=== PATIENT | male | born 2005 | race Hispanic/Latino ===

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

== ENCOUNTER 2024-12-06 18:38 | Emergency (ER) | payer BC ==
[~2024-12-06] VITALS: Ht 175.3 cm; Wt 61.2 kg
[~2024-12-06 18:38] MED LIST: FAMO-136 PO; ONDA-243 PO
--- NOTE | 2024-12-06 19:08 | ERN ---
ED Note History of Present Illness Stated Complaint: TESTICULAR PAIN Chief Complaint: Testicular Injury/Pain Time Seen by MD: 18:42 Time Seen by Midlevel: 18:42 Dictation: 19-year-old male who presents to the ED for evaluation of testicular pain and dy suria he has had for past week. Denies fever, chills, flank pain, urethral discharge. No concern for STD Allergies: Coded Allergies: No Known Drug Allergies (Unverified Allergy, Unknown, 12/05/23) Home Meds Active Scripts Ibuprofen (Ibuprofen) 600 Mg Tablet, 1 TAB PO TID for pain for 10 Days, #30 TAB 0 Refills with food Prov:ALLIE LUO 12/06/24 Famotidine (Pepcid) 20 Mg Tablet, 20 MG PO DAILY, #30 TAB 0 Refills Prov:JOJO STEINBERG NP 12/05/23 Ondansetron (Ondansetron Odt) 4 Mg Tab.rapdis, 4 MG PO Q6HPRN PRN for nausea, #15 TAB 0 Refills Prov:JOJO STEINBERG NP 12/05/23 Past Medical History Past Medical History: No Pertinent History Surgical History: None Social History: Negative, Lives with family RN Note Reviewed/Agreed w/PFSH: Yes Review of System Dictation Constitutional: Negative for fever,chills, and weight loss Eyes: Negative for injury, pain,redness, and discharge ENT: Negative for injury,pain or swelling Cardiovascular: Negative for chest pain, palpitations, and edema Respiratory: Negative for shortness of breath, cough, and wheezing, Abdomen/GI: Negative for abdominal pain, nausea, vomiting, diarrhea, and constipation Back: Negative for injury and pain : Negative for injury, bleeding and discharge MS/Extremity: Negative for injury and deformity Skin: Negative for rash, and discoloration Neuro: Negative for headache, weakness, numbness, tingling, and seizure Psych: Negative for suicide ideation, homicidal ideation, and hallucinations Review of Systems: was completed Initial Vital Sign VS Vital Signs Date Time Temp Pulse Resp B/P (MAP) Pulse Ox O2 Delivery O2 Flow Rate FiO2 12/06/24 18:39 98.8 92 16 138/73 97 Room Air 12/06/24 19:02 0 21 Physical Exam Dictation General: awake, alert, NAD Head/Face: Normocephalic, atraumatic Eyes: PERRL, EOMI, vision at baseline ENT: oral cavity clear, TMs clear, no signs of infection Neck: Trachea midline, supple, no nuchal rigidity Cardiovascular: RRR, normal S1/S2, No MRGs, no JVD Respiratory: CTAB, no respiratory distress, No rales or wheezes Abdomen: Soft, non-tender, non-distended, normal bowel sounds, no guarding or rebound. Skin: Warm, dry, normal turgor, no rash MS/Extremity: Pulses equal, no cyanosis, neurovascular intact, FROM Neuro: COAx4, GCS 15, strength 5/5, CN 2-12 intact, normal cerebellar exam, normal gait, Psych: Normal behavior, mood, and affect normal Results (Laboratory/Radiology) Laboratory/Radiology Laboratory Tests Test 12/06/24 19:02 12/06/24 20:39 Urine Color YELLOW (YELLOW) Urine Appearance CLEAR (CLEAR) Urine pH 6.0 (5.0-8.0) Urine Specific [place] 1.028 (1.001-1.031) Urine Protein 20 mg/dL (NEGATIVE) H Urine Glucose (UA) NEGATIVE mg/dL (NEGATIVE) Urine Ketones 20 mg/dL (NEGATIVE) H Urine Occult Blood NEGATIVE (NEGATIVE) Urine Nitrate NEGATIVE (NEGATIVE) Urine Bilirubin NEGATIVE mg/dL (NEGATIVE) Urine Urobilinogen 0.2 mg/dL (0.2-1.0) Urine Leukocyte Esterase NEGATIVE Adi/uL Urine RBC 2-5 /HPF (0-1) H Urine WBC 2-5 /HPF (0-1) H Urine Bacteria None /HPF (None Seen) White Blood Count 9.5 K/uL (4.8-10.8) Red Blood Count 4.61 MIL/uL (4.50-6.20) Hemoglobin 14.0 g/dL (14.0-18.0) Hematocrit 39.5 % (42-54) L Mean Corpuscular Volume 85.7 fL (80-100) Mean Corpuscular Hemoglobin 30.4 pg (27.0-33.0) Mean Corpuscular Hemoglobin Concent 35.4 g/dL (32.0-36.0) Red Cell Distribution Width 12.5 % (11.0-15.5) Platelet Count 223 K/uL (130-400) Mean Platelet Volume 9.7 fL (7.5-10.5) Immature Granulocyte % (Auto) 0.2 % (0-1) Neutrophils (%) (Auto) 83.4 % (40.0-77.0) H Lymphocytes (%) (Auto) 8.8 % (21.0-51.0) L Monocytes (%) (Auto) 7.2 % (3.0-13.0) Eosinophils (%) (Auto) 0.1 % (0.0-8.0) Basophils (%) (Auto) 0.3 % (0.0-5.0) Neutrophils # (Auto) 7.9 K/uL (1.8-7.7) H Lymphocytes # (Auto) 0.8 K/uL (1.0-4.8) L Monocytes # (Auto) 0.7 K/uL (0.1-1.0) Eosinophils # (Auto) 0.01 K/uL (0.00-0.70) Basophils # (Auto) 0.03 K/uL (0.00-0.20) Absolute Immature Granulocyte (auto 0.02 K/uL (0-1) Nucleated Red Blood Cells 0.0 % (0.0-0.19) White Cell Morphology Comment See comments Sodium Level 135 mmol/L (136-145) L Potassium Level 3.5 mmol/L (3.5-5.1) Chloride Level 99 mmol/L (101-111) L Carbon Dioxide Level 29 mmol/L (21-32) Blood Urea Nitrogen 11 mg/dL (7-18) Creatinine 0.7 mg/dL (0.5-1.3) Glomerular Filtration Rate Calc 135 mL/min (>90) Random Glucose 100 mg/dL (70-105) Total Calcium 8.8 mg/dL (8.5-10.1) Labs Reviewed?: Yes ED Course ED Course Orders Procedure Category Date Status Time Urinalysis LAB 12/06/24 Complete W/Microscopic 18:54 Us Scrotum & Contents US 12/06/24 Resulted 18:54 Cbc With Differential LAB 12/06/24 Complete 20:27 Basic Metabolic Panel LAB 12/06/24 Complete 20:27 0.9%Nacl 1000ml (Ns PHA 12/06/24 Complete 1000ml) 20:30 Current Medications Medications (Trade) Dose Ordered Sig/Viral Route PRN Reason Start Time Stop Time Status Last Admin Dose Admin Sodium Chloride 1,000 ml @ 0 mls/hr ONCE ONCE IV 12/06/24 20:30 12/06/24 20:31 DC 12/06/24 20:41 Vital Signs Date Time Temp Pulse Resp B/P (MAP) Pulse Ox O2 Delivery O2 Flow Rate FiO2 12/06/24 20:27 98.2 86 16 136/70 98 Room Air* 0 21 12/06/24 19:02 98.2 90 16 135/72 98 Room Air* 0 21 12/06/24 18:39 98.8 92 16 138/73 97 Room Air 2014 after discussing results with patient and explaining negative workup with a UA and ultrasound, mother is now demanding lab work stating that he has had also right sided upper abdominal pain, nausea, vomiting, diarrhea as well. Patient did not mentioned to me initially and was only describing the dysuria and testicular swelling. Mother threatening for me to order blood work.Negative mcburney point tenderness. Patient was here 2 hrs prior to this waiting for results and no episodes of vomiting. Medical Decision Making MDM MDM: Differential diagnosis: UTI, epididymitis, inguinal hernia, STD Rationale: Tests considered and ordered secondary to shared decision making include: Previous outside records reviewed: Old ER visits. Medications-Per medication reconciliation Need for hospitalization: Patient does not meet criteria for hospitalization. Need for emergency major/minor surgery: No Patient's prior external medical records from other ER visits were reviewed by me as indicated. Prior testing and results from previous visits were reviewed. Prior tests were taken into account with medical decision making and resource utilization, independent historian/historians were used to obtain complete medical history. I independently interpreted the test that were performed, results were reviewed by me and considered findings on radiology if ordered. Medical management and examination interpretation discussions were had by me with other qualified healthcare professionals as indicated for the patient's care. Patient came in with some dysuria and noted to secondary swelling he has noted for the past week. Denies fever, chills, hematuria. Denies chance of STD. Denies any urethral discharge. No flank pain, afebrile. UA not consistent with UTI. Ultrasound is unremarkable. Patient will be discharged home in stable condition recommended to follow up with PCP. Return precautions close with patient. Patient verbalized understanding, agreed with plan, and all questions were answered at this time. No leukocytosis. No electrolyte abnormalities. No McBurney point tenderness. Tinajero score 1 and unlikely appendicitis. Patient given bolus of fluids discharged home with symptomatic treatment recommended follow up with PCP for DX & DISP Disposition: Discharge Departure Impression: Primary Impression: Testicular pain Additional Impression: Gastroenteritis Condition: Stable Scripts Ibuprofen (Ibuprofen) 600 Mg Tablet 1 TAB PO TID for pain for 10 Days, #30 TAB 0 Refills with food Prov: ALLIE LUO 12/06/24 Additional Instructions: DISCHARGE HOME. REST. FOLLOW UP WITH PRIMARY CARE DRAlma IN 24 HOURS. RETURN TO THE ER FOR ANY ACUTE CHANGE. PATIENT WAS ALSO ADVISED TO FOLLOW-UP WITH PRIMARY CARE PHYSICIAN IN 1 TO 2 DAYS FOR CONTINUED MONITORING. ALL INSTRUCTIONS WERE GIVEN TO [place]S TERM AND PATIENT AGREEABLE TO DISCHARGE AND PROPER FOLLOW-UP. Referrals: AG OVALLE MD (PCP) I have reviewed the case, and I agree with, Diagnosis and Plan ALLIE LUO Dec 06, 2024 19:07
[2024-12-06 19:10] LABS: APPEARANCE,URINE CLEAR (CLEAR); GLUCOSE, URINE (UA) NEGATIVE (NEGATIVE); LEUKOCYTE ESTERASE ,URINE NEGATIVE Leu/uL (NEGATIVE); NITRATE,URINE NEGATIVE (NEGATIVE); OCCULT BLOOD,URINE NEGATIVE (NEGATIVE)
--- NOTE | 2024-12-06 20:07 | HMCIMG ---
EXAMINATION: US Scrotum CLINICAL HISTORY: Patient presents with testicular pain. TECHNIQUE: Real-time ultrasound of the scrotum with color Doppler and image documentation. COMPARISON: None provided. FINDINGS: RIGHT TESTICLE: Measures 3.4 x 2.5 x 2.0 cm. Homogeneous echotexture. No abnormal mass. Color Doppler flow is within normal limits. LEFT TESTICLE: Measures 3.8 x 2.7 x 2.3 cm. Homogeneous echotexture. No abnormal mass. Color Doppler flow is within normal limits. EPIDIDYMIDES: Right epididymis measures 6 mm. Left epididymis measures 7 mm. Both are normal in size with normal vascularity on color Doppler. SCROTUM: Unremarkable. No hydrocele, varicocele, or extratesticular mass. IMPRESSION: Normal bilateral testicular size, echotexture, and vascularity. Normal bilateral epididymal size and vascularity. No hydrocele, varicocele, or extratesticular mass. No acute abnormality evident on sonographic examination of the scrotum. /Cunningham
[2024-12-06] MEDS ORDERED: IBUP-1492 PO (20:23)
[2024-12-06 20:27] VITALS: BP 136/70; PULSE 86; RESP 16; TEMP 98.3; O2SAT 98
[2024-12-06] MEDS: 0.9%NACL 1000ML 1,000 ML IV ONE (20:41)
[2024-12-06 20:44] LABS: IMMATURE GRANULOCYTE ABSOLUTE 0.02 K/uL (0-1); NUCLEATED RED BLOOD CELLS 0.0 % (0.0-0.19); PLATELET COUNT (AUTO) 223 K/uL (130-400); RED BLOOD CELL COUNT(AUTO) 4.61 MIL/uL (4.50-6.20); RED CELL DISTRIBUTION WIDTH 12.5 % (11.0-15.5); WHITE BLOOD COUNT (AUTO) 9.5 K/uL (4.8-10.8)
[2024-12-06 20:52] LABS: CREATININE 0.7 mg/dL (0.5-1.3); GLOMERULAR FILTR. RATE CALC 135.0 mL/min (>90); GLUCOSE,RANDOM 100.0 mg/dL (70-105); SODIUM SERUM 135.0 mmol/L (136-145); UREA NITROGEN, BLOOD 11.0 mg/dL (7-18)
== END 2024-12-06 21:30 | disposition home or self-care (01) ==
LOC: EDH 18:39
DX: N50.819 Testicular pain, unspecified (principal); K52.9 Noninfective gastroenteritis and colitis, unspecified; Z79.1 Long term (current) use of non-steroidal anti-inflammatories (NSAID); Z79.899 Other long term (current) drug therapy
CPT/HCPCS: 99284; 96360; 80048; 85025; 81001; 36415; 76870; J7030